=== PATIENT | female | born 1995 | race Caucasian/White ===

== ENCOUNTER 2022-08-09 01:12 | Outpatient (CLI) | payer BC, SELFPAY ==
[2022-08-09 14:40] LABS: Panorama Kit Sent via Fed Ex
[2022-08-09 15:14] LABS: Abs Immature Grans 0.01 10^3/uL (0.0-0.06); Absolute Basophil Count 0.03 10^3/uL (0.0-0.2); Absolute Eosinophil Count 0.03 10^3/uL (0.0-0.7); Absolute Lymphocyte Count 1.69 10^3/uL (1.2-3.4); Absolute Monocyte Count 0.27 10^3/uL (0.1-0.8); Absolute Neutrophil Count 6.32 10^3/uL (1.2-6.7); Basophils % 0.4; Eosinophils % 0.4; HCT 37.7 % (36.0-46.0); HGB 13.1 g/dL (11.2-15.7); Immature Grans % 0.1; Lymphocytes % 20.2; MCH 29.2 pg (27.0-33.0); MCHC 34.7 % (32.0-36.0); MCV 84 fL (80-95); MPV 9.4 fL (8.0-11.0); Monocytes % 3.2; Neutrophils % 75.7; Platelet Count 241 10^3/uL (130-400); RBC 4.49 10^6/uL (3.93-5.22); RDW 13.3 % (11.7-14.6); RDW-SD 41.1 fL; WBC 8.35 10^3/uL (4.4-10.8)
[2022-08-09 15:55] LABS: Glucose,1 Hr (Glucola) 136 mg/dL (80-140)
[2022-08-09 16:11] LABS: TSH (W/Ref FT4) 1.81 uIU/mL (0.36-3.74)
[2022-08-12 10:29] LABS: HIV-1/2 Ag & Ab Screen Negative (Negative)
[2022-08-12 10:42] LABS: Varicella IgG Antibody Positive (See Note)
[2022-08-12 10:44] LABS: Rubella IgG Ab (UVM) Positive (See Note)
[2022-08-12 10:45] LABS: Hepatitis C Ab w Rflx HCV PCR Negative (Negative)
[2022-08-12 11:34] LABS: Hepatitis B Surface Ag Negative (Negative)
[2022-08-13 13:02] LABS: Syphilis IgG w/Reflex Nonreactive (Nonreactive)
== END 2022-08-09 01:13 | disposition home or self-care (01) ==
LOC: LBO 01:13
PROVIDERS: Visit Provider Advanced Practice Midwife
DX: Z34.91 Encounter for supervision of normal pregnancy, unspecified, first trimester (principal); Z36.89 Encounter for other specified antenatal screening; Z3A.10 10 weeks gestation of pregnancy
CPT/HCPCS: 36415; 82950; 86787; 86803; 86850; 86900; 86901; 87340; 87389; 84443; 85025; 86762; 86780

== ENCOUNTER 2022-08-09 14:17 | Outpatient (REF) | payer BC, SELFPAY ==
--- NOTE | 2022-08-09 13:30 | PAPFT_PTH ---
PATIENT: Jennifer Dasilva LOC: [facility] U#:[id number] AGE/SX: 26/F ROOM: RE08/09/[address]: Mary Anne Guzman CNM : 1995 BED: DIS: 08/09/2022 SPEC #: [id number] RECD: 08/09/22 16:21 STATUS: [place] REMark #: [id number] RICKY: 08/09/22 13:[address]: Mary Anne Guzman DEPT: [facility] Cytology RECD BY: Karine Snyder Tissues: 1 - CX/ENDOCX FOR PAP SMEARS Procedures: PAP THIN PREP/UVM Screening Comments: [id number] (CHLAMYDIA/GC)
[2022-08-09 15:21] LABS: *AMPHETAMINES SCREEN URINE Negative (Negative); *BARBITURATES SCREEN URINE Negative (Negative); *BENZODIAZEPINES SCREEN URINE Negative (Negative); Cannabinoids THC Negative (Negative); Cocaine Screen,Urine Negative (Negative); METHADONE URINE SCREEN Negative (Negative); OPIATES URINE SCREEN Negative (Negative)
[2022-08-09 15:26] LABS: Tricyclic Antidepressants Negative (Negative)
[2022-08-11 16:55] LABS: Chlamydia Result Negative (Negative); GC Result Negative (Negative)
[2022-08-19 21:09] LABS: Buprenorphine Negative ng/mL (Cutoff: 5.0); Norbuprenorphine Negative ng/mL (Cutoff: 2.5)
== END 2022-08-09 14:18 | disposition home or self-care (01) ==
LOC: LBN 14:17
PROVIDERS: Visit Provider Advanced Practice Midwife
DX: Z34.91 Encounter for supervision of normal pregnancy, unspecified, first trimester (principal); Z11.3 Encounter for screening for infections with a predominantly sexual mode of transmission; Z3A.10 10 weeks gestation of pregnancy; Z12.4 Encounter for screening for malignant neoplasm of cervix
CPT/HCPCS: 80307; 80348; 87491; 87591; 88142; 87086

== ENCOUNTER 2022-08-16 02:59 | Outpatient (CLI) | payer BC, SELFPAY ==
[2022-08-16 12:04] LABS: Glucose 1 Hour 143 mg/dL
[2022-08-16 13:49] LABS: Glucose 3 Hour 102 mg/dL
== END 2022-08-16 03:00 | disposition home or self-care (01) ==
LOC: LBO 03:01
PROVIDERS: Visit Provider Advanced Practice Midwife
DX: Z34.90 Encounter for supervision of normal pregnancy, unspecified, unspecified trimester (principal)
CPT/HCPCS: 36415; 82951

== ENCOUNTER 2022-11-19 03:22 | Outpatient (CLI) | payer BC, SELFPAY ==
[2022-11-19 07:13] LABS: HCT 36.7 % (36.0-46.0); HGB 12.5 g/dL (11.2-15.7); MCH 30.5 pg (27.0-33.0); MCHC 34.1 % (32.0-36.0); MCV 90 fL (80-95); MPV 8.8 fL (8.0-11.0); Platelet Count 204 10^3/uL (130-400); RDW 13.8 % (11.7-14.6); RDW-SD 45.3 fL; WBC 10.36 10^3/uL (4.4-10.8)
[2022-11-19 07:48] LABS: ALT 21 U/L (14-59); AST 16 U/L (15-37); Albumin 2.8 g/dL (3.4-5.0); Alkaline Phosphatase 76 U/L (46-116); Anion Gap 7.3 mmol/L (3-11); BUN 8 mg/dL (7-18); Bilirubin, Total 0.3 mg/dL (0.2-1.0); CO2 26.7 mmol/L (21.0-32.0); CREATININE 0.6 mg/dL (0.55-1.02); Chloride 102 mmol/L (98-107); Estimated GFR 127.67 (mL/min/1.73m2); Glucose 88 mg/dL (74-106); Potassium 3.8 mmol/L (3.5-5.1); Sodium 136 mmol/L (136-145); Total Protein 6.7 g/dL (6.4-8.2)
[2022-11-19 08:43] LABS: Glucose 1 Hour 153 mg/dL
[2022-11-19 10:47] LABS: Glucose 3 Hour 52 mg/dL
== END 2022-11-19 03:23 | disposition home or self-care (01) ==
LOC: LBO 03:22
PROVIDERS: Visit Provider Advanced Practice Midwife
DX: Z34.92 Encounter for supervision of normal pregnancy, unspecified, second trimester (principal); Z3A.25 25 weeks gestation of pregnancy
CPT/HCPCS: 36415; 80053; 85027; 82951

== ENCOUNTER 2023-02-07 15:52 | Outpatient (REF) | payer BC, SELFPAY ==
[2023-02-07 17:02] LABS: *AMPHETAMINES SCREEN URINE Negative (Negative); *BARBITURATES SCREEN URINE Negative (Negative); *BENZODIAZEPINES SCREEN URINE Negative (Negative); Cannabinoids THC Negative (Negative); Cocaine Screen,Urine Negative (Negative); METHADONE URINE SCREEN Negative (Negative); OPIATES URINE SCREEN Negative (Negative); Tricyclic Antidepressants Negative (Negative)
[2023-02-13 08:32] LABS: Buprenorphine Negative ng/mL (Cutoff: 5.0); Norbuprenorphine Negative ng/mL (Cutoff: 2.5)
== END 2023-02-07 15:53 | disposition home or self-care (01) ==
LOC: LBN 15:52
PROVIDERS: PCP Advanced Practice Midwife; Visit Provider Advanced Practice Midwife
DX: Z34.90 Encounter for supervision of normal pregnancy, unspecified, unspecified trimester (principal)
CPT/HCPCS: 80307; 80348; 87081

== ENCOUNTER 2023-02-26 18:50 | Inpatient (IN) | payer BC, SELFPAY ==
[2023-02-26 17:00] VITALS: BP 128/78; PULSE 83; TEMP 36.8
[2023-02-26 17:12] VITALS: BP 128/78; PULSE 83
[2023-02-26 18:27] LABS: ROM Plus Positive
--- NOTE | 2023-02-26 18:30 | W.PM.OBHPL1 ---
Date of service: 02/26/23 Time of Service: 18:31 Assessment and Plan Assessment and plan (1) Full-term premature rupture of membranes (PROM) with unknown onset of labor: Status: Acute Assessment and plan: 1. Will admit, CBC and type and screen. 2. Observe for increase in contraction strength and frequency, consider augmentation if indicated. 3. GBS negative and afebrile 4. [employer] was present when patient arrived and has talked with patient about epidural if needed. 5. Expect NVD. Dr. Rodríguez is aware of patient's admission and plan of care. KH OB-HPI Labor/Delivery History of Present Illness Reason for Visit: NST Chief Complaint: Suspected Rupture of Membranes , Associated Signs and Symptoms of Suspected ROM: Nitrazine positive and large gushes of clear fluid vaginally.. SARAH Calculator Estimated Delivery Date Method Current WG Current Estimate 03/02/23 Ultrasound #1 39w 3d Other Estimates 02/23/23 LMP (Certain) 40w 3d Comments: Jennifer presented at 1640 with complaint of leaking clear amniotic fluid since 1240 today. She has been having some contractions. Denies vaginal bleeding. She is planning epidural in labor. Nitrazine paper used to confirmed ROM as well as large amounts of fluid noted under patient on pad. LANETTE History of Present Expected Delivery Route/Plan - CNM FOB/partner - Hazel Anton (first child) BG / GBS neg Planning on epidural, but maybe access to tub for early labor Specific Issues/Plan 1. BMI 30 - early glucola 136, 3hr GTT nml x4 1a. 3 hr GTT at 27-28 wks=nml: 92/153/123/52 2. Increased preeclampsia risk d/t nulliparity & BMI - Started ASA at 12 wks 3. cfDNA Low risk female, declines CF/SMA and AFP 4. mild scoliosis, anesthesia consult third trimester. Workload sent to [employer] 11/29. 01/09 - anesthesia consult 5. GERD = protonix recommended daily. Changed back to omeprazole. 6. Leg cramps - magnesium daily recommended- did not take Assessment: History Reviewed & Current Review of Systems All systems reviewed & are unremarkable except as noted in HPI and below (irregular contractions.) PFSH All Active Problems (Updated 02/26/23 @ 18:37 by Mary Anne Guzman CNM) Full-term premature rupture of membranes (PROM) with unknown onset of labor (Acute) Exertional asthma (Acute) Chronic heartburn (Acute) (Acute) BMI 30.0-30.9,adult (Acute) Medical History (Updated 02/26/23 @ 18:37 by Mary Anne Guzman CNM) Positive urine test Family History Mother Parathyroid abnormality Paternal Grandmother Hyperlipidemia Social History (Updated 08/09/22 @ 12:51 by Mary Anne Guzman CNM) Smoking/Tobacco Use Status: Never Smoking risk assessment performed?: Yes Alcohol Intake: current Alcohol Intake frequency: a few times a month Details: quit with Current gender identity: female History History 1 Para 0 Hx # Term Pregnancies 0 Multiple births 0 Hx # Pregnancies 0 Ectopic pregnancies 0 AB induced 0 Hx Number of Living Children 0 AB spontaneous 0 Meds Allergies and Home Medications Allergies Allergy/AdvReac Type Severity Reaction Status Date / Time No Known Drug Allergies Allergy Verified 02/21/23 14:27 Home Medications Medication Instructions Recorded Confirmed Type prenat.vits,hira,gys-jstm-zufkp 1 tab PO DAILY 07/04/22 02/21/23 History omega-3 fatty acids 1,250 mg 1,250 mg PO DAILY 07/18/22 02/21/23 History capsule aspirin 81 mg tablet,delayed 81 mg PO DAILY 09/13/22 02/21/23 History release (Adult Low Dose Aspirin) omeprazole 10 mg capsule,delayed 20 mg (2 x 10 mg) PO DAILY #30 caps 12/27/22 02/21/23 Rx release Exam Physical Exam Vital signs: Pulse BP 83 128/78 02/26/23 17:12 02/26/23 17:12 Vital Signs Reviewed: Yes Constitutional Constitutional: no acute distress and obese Detailed Labor and Delivery Exam Dilation: 1.5 Effacement (%): 70 station: -2 Position: LOP Cervix position: posterior Consistency: soft Lucas Score: Cervical Points Exam 0 1 2 3 Dilation Closed 1-2cm 3-4 cm 5-6cm Effacement 0-30% 40-50% 60-70% 80% Consistency Firm Medium Soft Station -3 -2 -1,0 +1,+2 Position Posterior Mid Anterior LUCAS Score(Cervical Ripeness Score): 6 Amniotic Membrane Status: Ruptured Rupture Method: Spontaneous Amniotic Fluid: Clear Monitor Mode: External Contraction Frequency(min): irregular Contraction Duration(sec): irregular Contraction Intensity: Mild Fetus A Heart Rate Baseline: 140 Monitor Accelerations: 15 X 15 Monitor Decelerations: None Variability: Moderate (6-25 BPM) Categories: Category I Est. Weight: 7 lb 12 oz Date of Membrane Rupture: 02/26/23 Time of Membrane Rupture: 12:40 HEENT Exam HEENT Exam: Normal Neck Exam Neck Exam: Normal Chest/Brest/Axilla Exam Chest Exam: Normal Breast Exam Breast Exam: Not Done Respiratory Exam Respiratory Exam: Normal Cardiovascular Exam Cardiovascular Exam: Normal Abdominal Exam Abdominal Exam: Normal Rectal Exam Rectal Exam: Not Done Exam Exam: Normal Extremities Exam Extremities Exam: Normal Back/Spine/Pelvis Exam Back Exam: Normal Pelvis Adequate: Yes Skin Exam Skin Exam: Normal Neurological Exam Neurological Exam: Normal Psychiatric Exam Psychiatric Exam: Normal Risk Assessment Risk for Shoulder Dystocia Historical/Initial OB: POSITIVE FOR: Pre- BMI>30; NEGATIVE FOR: Pelvic Abnormality, Previous Shoulder Dystocia or Previous Macrosomia 40 Weeks: NEGATIVE FOR: EFW> 4500 gms, Maternal Weight Gain >40lb or Post Dates Delivery Plan @ 40 wks: NVD. GAMA Risk for Pre-Eclampsia Yes, if one or more: NEGATIVE FOR: Hx Pre-E/Gest HTN, Chronic HTN, Multiple Gestation, Pre-gestational DM, Renal Disease, Systemic Lupus or APA Syndrome Yes, if 2 or more: POSITIVE FOR: Nulliparity and BMI>30; NEGATIVE FOR: Age>= 35 yrs, >10yr btwn pregnancies, ethinicty, Mother/Sister w/ Pre-E or Previous IUGR Risk for Post- Hemorrhage Initial: NEGATIVE FOR: Multiple Gestation, Previous PPH, Known Clotting Deficiency, Grand Multiparity or Anticoagulation 40 Weeks: NEGATIVE FOR: Anemia, hgb<10, Low platelets (thrombocytopenia), Gestation HTN or Pre-E, Polyhydraminios or EFW>4500gms At Risk?: No Counseled re: Active Management: Yes Date/Initials: 02/26/23 LANETTE Risks Reviewed Risks Reviewed Upon Admission: Yes
--- NOTE | 2023-02-26 19:02 | W.PM.OBNL1 ---
Date of service: 02/26/23 Time of Service: 19:03 Informed Consent Informed Consent: Augmentation of Labor and Risk,Benefits,Alternatives Discussed Contractions Monitor Mode: Palpation Contraction Frequency(min): irregular Fetus A Assessment Note: FHR tracing reassuring on admission. Currently off monitor to eat and ambulate. Plan will be to augment at approximately 2100 unless in active labor by that time. Will be back on monitor prior to that dose. LANETTE Assessment and Plan Assessment and plan (1) Full-term premature rupture of membranes (PROM) with unknown onset of labor: Status: Acute Assessment and plan: 1. Discussed augmentation of labor with misoprostol and or pitocin with patient versus expectant management. She prefer to start misoprostol this evening to make labor more effective. 2. Will start with 50 mg misoprostol at approximately 2100 unless actively marisel at that time. LANETTE Objective Pulse BP 83 128/78 02/26/23 17:12 02/26/23 17:12 Laboratory Results Membranes Rupture Positive 02/26/23 17:35 Subjective Interval history since last seen: Jennifer would like to have dinner and then start a method of augmentation. We discussed pitocin and misoptostol. She prefer misoprostol to start. I have reviewed risks and benefits as well as expected outcomes and potential side effects. Denies questions. LANETTE
[2023-02-26 19:11] VITALS: BP 112/63; PULSE 76; RESP 16; TEMP 37
[2023-02-26 19:21] LABS: HCT 33.2 % (36.0-46.0); HGB 11.1 g/dL (11.2-15.7); MCH 27.8 pg (27.0-33.0); MCHC 33.4 % (32.0-36.0); MCV 83 fL (80-95); MPV 9.9 fL (8.0-11.0); Platelet Count 218 10^3/uL (130-400); RBC 3.99 10^6/uL (3.93-5.22); RDW 13.2 % (11.7-14.6); RDW-SD 39.9 fL; WBC 13.53 10^3/uL (4.4-10.8)
--- NOTE | 2023-02-26 20:38 | ANES.PREOP_ITS ---
General Info Date of Service Date Performed: 02/26/23 Height: 5 ft 7 in Weight: 105.868 kg Body Mass Index (BMI): 36.5 Meds Allergies and Home Medications Allergies Allergy/AdvReac Type Severity Reaction Status Date / Time No Known Drug Allergies Allergy Verified 02/21/23 14:27 Home Medication Medication Instructions Recorded prenat.vits,hira,vey-[id number] 1 tab PO DAILY 07/04/22 omega-3 fatty acids 1,250 mg 1,250 mg PO DAILY 07/18/22 capsule aspirin 81 mg tablet,delayed 81 mg PO DAILY 09/13/22 release (Adult Low Dose Aspirin) omeprazole 10 mg capsule,delayed 20 mg (2 x 10 mg) PO DAILY #30 caps 12/27/22 release Current Visit Medications: Current Medications Generic Name Dose Route Start Last Admin Trade Name Freq PRN Reason Stop Dose Admin Ringer's Solution 1,000 mls @ 200 mls/hr 02/26/23 19:00 IV INFUSION [facility] IV Miscellaneous Supplies 1 each 02/26/23 19:00 Iv Access IV DIRECTED JEVON Misoprostol 50 mcg 02/26/23 19:00 Misoprostol 25 Mcg Tab PO Q4H JEVON Sodium Chloride 0 ml 02/26/23 18:50 Normal Saline Flush 10 Ml Syr IVP PRN PRN Sodium Chloride 0 ml 02/26/23 20:00 Normal Saline Flush 10 Ml Syr IVP BID JEVON Sodium Chloride 0 ml 02/26/23 18:50 Normal Saline 10 Ml Vial IJ DIRECTED PRN Terbutaline Sulfate 0.25 mg 02/26/23 18:50 Terbutaline 1 Mg/Ml Vial SC PRN PRN Zolpidem Tartrate 10 mg 02/26/23 21:00 Zolpidem 5 Mg Tab PO 02/27/23 06:00 2100 JEVON PFSH Active Problems Active Problems: Problem Status Onset Code Full-term premature rupture of membranes (PROM) with unknown onset of labor O42.90 Exertional asthma J45.990 Chronic heartburn R12 Z34.90 BMI 30.0-30.9,adult Z68.30 Medical History Medical History (Updated 02/26/23 @ 18:37 by Mary Anne Guzman CNM) Positive urine test Tobacco Smoking/Tobacco Use Status: Never Alcohol Alcohol Intake: current Alcohol intake frequency: a few times a month Details: quit with Prental History History 2 1 Para 0 Hx # Term Pregnancies 0 Multiple births 0 Hx # Pregnancies 0 Ectopic pregnancies 0 AB induced 0 Hx Number of Living Children 0 AB spontaneous 0 Vital Signs and Lab Results Vital Signs Most Recent Vital Signs in EMR: Most Recent Vital Signs Temp Pulse Resp BP 37.0 C 76 16 112/63 02/26/23 19:11 02/26/23 19:11 02/26/23 19:11 02/26/23 19:11 Lab Results 02/26/23 19:06 Blood Type / Crossmatch: 2 Patient ABO/Rh A Positive 02/26/23 Antibody Screen NEGATIVE 02/26/23 Complete Blood Count: 2 White Blood Count 13.53 10^3/uL (4.4-10.8) H 02/26/23 19:06 Red Blood Count 3.99 10^6/uL (3.93-5.22) 02/26/23 19:06 Hemoglobin 11.1 g/dL (11.2-15.7) L 02/26/23 19:06 Hematocrit 33.2 % (36.0-46.0) L 02/26/23 19:06 Platelet Count 218 10^3/uL (130-400) 02/26/23 19:06 Complete Metabolic Panel: 2 No Data to Display Liver Function Panel: 2 No Data to Display Coagulation Panel: 2 No Data to Display Cardiac Panel: 2 No Data to Display Arterial Blood Gas: 2 No Data to Display Venous Blood Gas: 2 No Data to Display Pancreas Panel: 2 No Data to Display Thyroid Panel: 2 No Data to Display Infectious Disease: 2 No Data to Display Blood Cultures: 2 No Data to Display Toxicology Panel: 2 Urine Amphetamines Screen Negative (Negative) 02/07/23 15:45 Urine Benzodiazepines Screen Negative (Negative) 02/07/23 15:4 5 Urine Barbiturates Screen Negative (Negative) 02/07/23 15:45 Urine Cocaine Screen Negative (Negative) 02/07/23 15:45 Urine Methadone Screen Negative (Negative) 02/07/23 15:45 Urine Opiates Screen Negative (Negative) 02/07/23 15:45 Ur Tricyclic Antidepressants Screen Negative (Negative) 15:45 Ur Tetrahydrocannabinol (THC) Scrn Negative (Negative) 3 15:45 Panel: 2 No Data to Display Anesthesia Assessment and Plan Anesthesia History Personal History: No History of Anesthesia Complications Family History: No Family History of Anesthesia Complications Exercise Tolerance Exercise Tolerance: Metabolic Equivalents>4 Pertinent Negatives Pertinent Negatives: No Major Cardiovascular Symptoms or Complaints Cardiac & Pulmonary Exam Cardiac Exam: Normal S1/S2 Heart Sounds Pulmonary Exam: Clear Bilateral Breath Sounds Implantable Cardiac Device Does patient have a Pacemaker or an ICD?: No Airway Exam Known Difficult Airway: No Mallampati Class: 2 Mouth Opening: Normal (> 3cm) Thyromental Distance: Greater than 3 cm Neck Range of Motion: Full ROM Neck Circumference: Normal Teeth Condition: Normal Dentition ASA Classification ASA Score: ASA 2 Emergency Case?: No NPO Status NPO Status: Full Stomach Status Status: Confirmed Anesthesia Plan Resuscitation Status: Full Code Anesthesia Technique: Labor Epidural Airway Planned: Natural Airway Monitors Used: Standard Monitors
[2023-02-26 20:42] VITALS: BMI 36.5
[2023-02-26 21:20] VITALS: TEMP 36.7
--- NOTE | 2023-02-26 21:20 | W.PM.OBNL1 ---
Date of service: 02/26/23 Time of Service: 21:00 Informed Consent Informed Consent: Augmentation of Labor and Risk,Benefits,Alternatives Discussed Pelvic Exam Comments: VE deferred due to ROM X >8 hours Contractions Monitor Mode: Palpation Contraction Frequency(min): 5 Contraction Duration(sec): 60 Intensity: Mild/Moderate Fetus A Monitor: External (US) Heart Rate Baseline: 135 Categories: Category I Assessment and Plan Assessment and plan (1) Full-term premature rupture of membranes (PROM) with unknown onset of labor: Status: Acute Assessment and plan: 1. Jennifer's contractions are becoming more regular and intensifying. Will continue with expectant management and defer misoprostol at this time. Will reassess in 2-4 hours or prn. KH Objective Abnormal lab results 02/26/23 Range/Units 19:06 WBC 13.53 H (4.4-10.8) 10^3/uL Hgb 11.1 L (11.2-15.7) g/dL Hct 33.2 L (36.0-46.0) % Temp Pulse Resp BP 98.6 F 76 16 112/63 02/26/23 19:11 02/26/23 19:11 02/26/23 19:11 02/26/23 19:11 Laboratory Results WBC 13.53 10^3/uL (4.4-10.8) H 02/26/23 19:06 RBC 3.99 10^6/uL (3.93-5.22) 02/26/23 19:06 Hgb 11.1 g/dL (11.2-15.7) L 02/26/23 19:06 Hct 33.2 % (36.0-46.0) L 02/26/23 19:06 MCV 83 fL (80-95) 02/26/23 19:06 MCH 27.8 pg (27.0-33.0) 02/26/23 19:06 MCHC 33.4 % (32.0-36.0) 02/26/23 19:06 RDW 13.2 % (11.7-14.6) 02/26/23 19:06 Plt Count 218 10^3/uL (130-400) 02/26/23 19:06 MPV 9.9 fL (8.0-11.0) 02/26/23 19:06 Membranes Rupture Positive 02/26/23 17:35 Patient ABO/Rh A Positive 02/26/23 19:06 Antibody Screen NEGATIVE 02/26/23 19:06 Subjective Interval history since last seen: Jennifer is more uncomfortable and breathing through contractions. Will hold misoprostol and continue with expectant management.KH Results Hemoglobin/Hematocrit: Hgb 11.1 g/dL (11.2-15.7) L 02/26/23 19:06 Hct 33.2 % (36.0-46.0) L 02/26/23 19:06 Abnormal Lab Findings: Abnormal Labs 02/26/23 19:06 WBC 13.53 H Hgb 11.1 L Hct 33.2 L
[2023-02-26 22:21] VITALS: TEMP 36.8
[2023-02-26 23:19] VITALS: BP 120/73; PULSE 77; RESP 16; TEMP 37
--- NOTE | 2023-02-26 23:38 | W.PM.OBNL1 ---
Date of service: 02/26/23 Time of Service: 23:38 Informed Consent Informed Consent: Augmentation of Labor and Risk,Benefits,Alternatives Discussed Pelvic Exam Comments: VE deferred Contractions Monitor Mode: External Contraction Frequency(min): 4-6 Contraction Duration(sec): 40-60 Intensity: Mild/Moderate Fetus A Monitor: External (US) Heart Rate Baseline: 135 Variability: Moderate (6-25 BPM) Categories: Category I Assessment and Plan Assessment and plan (1) Full-term premature rupture of membranes (PROM) with unknown onset of labor: Status: Acute Assessment and plan: 1. Will start misoprostol 50 mcg PO and reassess in 1-2 hours 2. Nitrous for pain management at this time if needed 3. Reviewed importance of rest but also active participation in labor process 4. Denies questions and prefers to move labor forward at this time. KH Objective Abnormal lab results 02/26/23 Range/Units 19:06 WBC 13.53 H (4.4-10.8) 10^3/uL Hgb 11.1 L (11.2-15.7) g/dL Hct 33.2 L (36.0-46.0) % Temp Pulse Resp BP 98.3 F 77 16 120/73 02/26/23 22:21 02/26/23 23:19 02/26/23 19:11 02/26/23 23:19 Laboratory Results WBC 13.53 10^3/uL (4.4-10.8) H 02/26/23 19:06 RBC 3.99 10^6/uL (3.93-5.22) 02/26/23 19:06 Hgb 11.1 g/dL (11.2-15.7) L 02/26/23 19:06 Hct 33.2 % (36.0-46.0) L 02/26/23 19:06 MCV 83 fL (80-95) 02/26/23 19:06 MCH 27.8 pg (27.0-33.0) 02/26/23 19:06 MCHC 33.4 % (32.0-36.0) 02/26/23 19:06 RDW 13.2 % (11.7-14.6) 02/26/23 19:06 Plt Count 218 10^3/uL (130-400) 02/26/23 19:06 MPV 9.9 fL (8.0-11.0) 02/26/23 19:06 Membranes Rupture Positive 02/26/23 17:35 Patient ABO/Rh A Positive 02/26/23 19:06 Antibody Screen NEGATIVE 02/26/23 19:06 Subjective Interval history since last seen: I talked with Jennifer and her partner about being 11 hours with ROM and not in active labor. Her contractions are more uncomfortable for her but are still up to 6-8 minutes apart at times. We discussed continued expectant management and that prolonged rupture of membranes, even without GBS is a risk of infection and labor abnormalities but that some women will go into active labor at 24 hours after ROM. We discussed that she is afebrile, baby is doing well and there is no need to intervene immediately but also keeping in mind that she is remote from delivery. I reviewed options of misoprostol, pitocin or expectant management and pain management options of nitrous or epidural as needed. Jennifer would like to try misoprostol and nitrous at this time. KH Interventions Pain Management Interventions: Comfort Measures and Nitrous Oxide , reviewed proper use and potential side effects as well as expected effects. denies questions ./ Other (misoprostol 50 mcg PO) Results Hemoglobin/Hematocrit: Hgb 11.1 g/dL (11.2-15.7) L 02/26/23 19:06 Hct 33.2 % (36.0-46.0) L 02/26/23 19:06 Abnormal Lab Findings: Abnormal Labs 02/26/23 19:06 WBC 13.53 H Hgb 11.1 L Hct 33.2 L
[2023-02-26] MEDS: miSOPROStol 25 MCG TAB 50 MCG PO (23:49)
[2023-02-27] VITALS (121 sets, daily range): BP systolic 90–165; BP diastolic 50–98; PULSE 74–166; RESP 16–17; TEMP 36.2–37.6; O2SAT 84–100
--- NOTE | 2023-02-27 01:48 | W.PM.OBNL1 ---
Date of service: 02/27/23 Time of Service: 01:49 Informed Consent Informed Consent: Augmentation of Labor and Risk,Benefits,Alternatives Discussed Pelvic Exam Dilation: 6 Effacement (%): 90 station: -1 Cervix Position: mid Consistency: soft Contractions Monitor Mode: External Contraction Frequency(min): 2-3 Contraction Duration(sec): 60 Intensity: Moderate/Strong Fetus A Monitor: External (US) Heart Rate Baseline: 40 Variability: Moderate (6-25 BPM) Categories: Category I Accelerations: 15 X 15 Decelerations: None Assessment and Plan Assessment and plan (1) Full-term premature rupture of membranes (PROM) with unknown onset of labor: Status: Acute Assessment and plan: 1. In active labor at this time 2. IV started and Nursing dehydrogenation supervisor notified of paitent request for epidural 3. Will reassess after epidural or prn 4. Expect NVD. KH Objective Abnormal lab results 02/26/23 Range/Units 19:06 WBC 13.53 H (4.4-10.8) 10^3/uL Hgb 11.1 L (11.2-15.7) g/dL Hct 33.2 L (36.0-46.0) % Temp Pulse Resp BP 98.5 F 77 16 120/73 02/27/23 00:47 02/26/23 23:19 02/26/23 23:19 02/26/23 23:19 Laboratory Results WBC 13.53 10^3/uL (4.4-10.8) H 02/26/23 19:06 RBC 3.99 10^6/uL (3.93-5.22) 02/26/23 19:06 Hgb 11.1 g/dL (11.2-15.7) L 02/26/23 19:06 Hct 33.2 % (36.0-46.0) L 02/26/23 19:06 MCV 83 fL (80-95) 02/26/23 19:06 MCH 27.8 pg (27.0-33.0) 02/26/23 19:06 MCHC 33.4 % (32.0-36.0) 02/26/23 19:06 RDW 13.2 % (11.7-14.6) 02/26/23 19:06 Plt Count 218 10^3/uL (130-400) 02/26/23 19:06 MPV 9.9 fL (8.0-11.0) 02/26/23 19:06 Membranes Rupture Positive 02/26/23 17:35 Patient ABO/Rh A Positive 02/26/23 19:06 Antibody Screen NEGATIVE 02/26/23 19:06 Subjective Interval history since last seen: Good response to misoprostol with regular contractions that have become intense. She is now asking for epidural. Nursing dehydrogenation supervisor notified to page [employer]. /-1 bulging forewaters + show Results Hemoglobin/Hematocrit: Hgb 11.1 g/dL (11.2-15.7) L 02/26/23 19:06 Hct 33.2 % (36.0-46.0) L 02/26/23 19:06 Abnormal Lab Findings: Abnormal Labs 02/26/23 19:06 WBC 13.53 H Hgb 11.1 L Hct 33.2 L
[2023-02-27] MEDS: Normal Saline Flush 10 ML SYR IVP ×2 (01:56→02:05)
[2023-02-27] MEDS: Lactated Ringers 1,000 ML 999 ML IV (01:56)
[2023-02-27] MEDS: fentaNYL 100 MCG/2 ML VIAL 25 MCG IVP ×2 (02:02→02:16)
--- NOTE | 2023-02-27 02:29 | NUR.NOTE ---
Addendum entered by Mirian Bui RN 02/27/23 03:05: 0233 lido 0240 catheter placed 0242 Test dose 0247 pt repositioned, pump started with bolus 0252 5ml bolus started Original Note: Nursing Note: 0200. Pt requests epidural KARTIK Guzman notified 0210 Iv Placed, LR started 0225 LESLI Tanner at bedside 0228 Consint signed pt positioned 022 time out
--- NOTE | 2023-02-27 03:10 | W.ANESNEU ---
Epidural/Spinal Catheter Date Performed: 02/27/23 Procedure Start: 02:32 Procedure Stop: 03:10 Requesting Provider: Mary Anne Guzman Procedure Location: Obstetrics Reason Performed: Labor Epidural Standard Monitors Applied: Blood Pressure, SpO2 and See EMR for corresponding vital signs Patient Position: Sitting Sedation Given (Indicate Dose Given): No Sedation given Patient Mental Status: Awake Sterility: Hand Hygiene, Surgical Cap, Surgical Mask, Sterile Gloves, Sterile Drape/Sheet and Chlorhexidine Procedure Location: L3-L4 Interspace Epidural Needle: Tuohy 18 Gauge Needle Length: 3.5 Inch Needle Approach: Midline Epidural Procedure: Skin Prepped, Sterile Drape Placed, 1% Lidocaine to skin and subcutaneous tissue with 25G needle, Tuohy Needle placed, JESSICA to Saline Used, Epidural Catheter Placed, Negative Heme, Negative CSF Flow and Tuohy Needle Removed Catheter Placed?: Catheter Placed Test Dose (Indicate Dose Given): 3ml 1.5% Lidocaine with 1:200K Epinephrine Given and Negative Test Dose Loss of Resistance Depth (cm): 6 Catheter depth at skin (cm): 12 Dressing: [place] Dressing Placed, Mastisol Used and Dressing reinforced with Tape Epidural Provider Bolus (Indicate Dose Given): Total bolus dose given in 3-5 ml divided doses and Total Ropivacaine 0.1% with Fentanyl 2mcg/ml Given from pump. (ml) Dose:: 15ml Additives (Indicate Dose Given ): None Infusion Medication: Medication Infusion Began Medication Infusion: Ropivacaine 0.1% with Fentanyl 2mcg/ml Maintenance Infusion Rate (ml/hour): 10 PCEA Bolus Dose (ml): 5 Post Procedure Pain score (0-10): 3 Block Level: N/A Paresthesia: None Ultrasound: Not Used Number of Attempts (See previous attempts in note section): 1 Procedure Tolerated: No Complications and Patient tolerated well Procedure Outcome: Successful Procedure Comment:: Successful placement with negative test dose. Pt. able to move legs and motor is strong. 15ml from pump with relief, now feeling mostly pressure. Will hold additional doses due to decels and patient educated on PCEA use. Pt. left in right side position with RN and CNM present. All questions answered. Performed By: Ciro Cool
[2023-02-27] MEDS: Lactated Ringers 1,000 ML 200 ML IV (03:15)
--- NOTE | 2023-02-27 04:25 | NUR.NOTE ---
Nursing Note: Straight cath placed by KARTIK Guzman for 150ml
--- NOTE | 2023-02-27 04:51 | W.PM.OBNL1 ---
Date of service: 02/27/23 Time of Service: 04:49 Informed Consent Informed Consent: Augmentation of Labor and Risk,Benefits,Alternatives Discussed Assessment and Plan Assessment and plan (1) Full-term premature rupture of membranes (PROM) with unknown onset of labor: Status: Acute Assessment and plan: 1. Jennifer progressed to 10 cm and urge to push following successfull epidural for pain management 2. FHR is CAT II with FHR tachycardia and late decels with pushing over past [address] Rodríguez notified of tracing and patient's pushing. 3. Bladder emptied for 150 cc concentrated urine 4. Will continue present management per consult and expect NVD. If FHR pattern worsens will notify physician again and she will attend. KH Objective Abnormal lab results 02/26/23 Range/Units 19:06 WBC 13.53 H (4.4-10.8) 10^3/uL Hgb 11.1 L (11.2-15.7) g/dL Hct 33.2 L (36.0-46.0) % Temp Pulse Resp BP Pulse Ox 99.4 F 88 16 133/58 L 100 02/27/23 04:46 02/27/23 04:50 02/26/23 23:19 02/27/23 04:50 02/27/23 04:48 Laboratory Results WBC 13.53 10^3/uL (4.4-10.8) H 02/26/23 19:06 RBC 3.99 10^6/uL (3.93-5.22) 02/26/23 19:06 Hgb 11.1 g/dL (11.2-15.7) L 02/26/23 19:06 Hct 33.2 % (36.0-46.0) L 02/26/23 19:06 MCV 83 fL (80-95) 02/26/23 19:06 MCH 27.8 pg (27.0-33.0) 02/26/23 19:06 MCHC 33.4 % (32.0-36.0) 02/26/23 19:06 RDW 13.2 % (11.7-14.6) 02/26/23 19:06 Plt Count 218 10^3/uL (130-400) 02/26/23 19:06 MPV 9.9 fL (8.0-11.0) 02/26/23 19:06 Membranes Rupture Positive 02/26/23 17:35 Patient ABO/Rh A Positive 02/26/23 19:06 Antibody Screen NEGATIVE 02/26/23 19:06 Subjective Interval history since last seen: call to Dr. Rodríguez due to CAT II tracing with decelerations in second stage. KH Results Hemoglobin/Hematocrit: Hgb 11.1 g/dL (11.2-15.7) L 02/26/23 19:06 Hct 33.2 % (36.0-46.0) L 02/26/23 19:06 Abnormal Lab Findings: Abnormal Labs 02/26/23 19:06 WBC 13.53 H Hgb 11.1 L Hct 33.2 L
[2023-02-27] MEDS: Oxytocin/Normal Saline 30 UNITS/500 ML BAG 167 UNITS IV (06:39)
--- NOTE | 2023-02-27 07:09 | W.OBDELIVERY ---
Date of service: 02/27/23 Time of Service: 07:09 OB Labor/ Delivery Information Baby A Delivery Delivery Method: Spontaneaous Presentation: Vertex Vertex Position: Left Occipital Anterior Cord Description-Baby A: 3 Vessels and Clamped/Cut Amniotic Fluid: Clear Estimated Blood Loss: 250 Delivery Outcome: Liveborn Infant Complications: none noted at delivery Infant Transferred: Remains with Mother Note: Jennifer presented for PROM at term on 02/26/23 in the evening. She had ROM at 1240 on 02/26 with increasing contractions noted. Reports fluid was clear and was noted to be clear on admission. She was having contractions 3-5 minutes apart and working well with them. FHR tracing was CAT I and reassuring. VS were stable. We discussed augmentation vs expectant management. Jennifer desired expectant management for a period of time and then agreed to a dose of Misoprostol 50 mcg PO at approximately 2345. Labor progressed to 6 cm and she requested epidural. FHR tracing remained CAT I with baseline of 140's. Contractions were every 2-3 minutes. Jennifer was able to rest for approximately 1 hour after her epidural was effective. At 0433 on 02/27/23 she was 10 cm with urge to push. Second stage huddle was held hourly, low risk for shoulder dystocia and PPH. FHR tracing was CAT II with FHR 160-170 and combination of early and occasional late deceleration. She pushed well. Fuel Cell Systems Engineer notified Dr. Rodríguez of tracing and that patient was pushing effectively at 0449. At 0555 underwriter solicitation director then called for pediatric provider to be notified of FHR tracing and Dr. Rodríguez was requested to come to assess patient due to persistent CAT II tracing, maternal fatigue. Dr. Rodríguez presented to hospital but patient was actively delivering and remained available in the hospital for CNM if needed. Baby Dorinda Vargas delivered MARINA over 1st degree left labial and vaginal introitus lacerations at 0630. Baby was vigorous at 1 minute of age with scores of 8 and 9. 3 vessel cord noted. Baby was placed skin to skin and after 2 minutes cord was double clamped and then cut by FOB. Positive family bonding noted. Pitocin was started per protocol. Placenta delivered at 0647, spontaneously, intact. fundus firmed to U with massage. Bi-manual exam demonstrated firm lower uterine segment. Lacerations were infiltrated with 1% lidocaine and repaired with 3.0 chromic with interrupted stitches to allow for approximation. sponge, needle and instrument count were correct. Expect normal PP course. Jennifer plans to breast feed her baby. Providers Nurse Stack Attendant: Mary Anne Guzman Nurse: Mirian Bui Nurse: Greta Cortez Labor/Delivery Information Number of Babies in Womb: 1 Steroids Given: None Reason Steroids Not Administered: N/A Group Beta Strep: Negative Antibiotics Administered: No Rubella Status: Immune Blood Type: A+ Varicella Immunity: Immune Maternal Complications: None Shoulder Dystocia: No Stages of Labor Onset of Labor Date: 02/27/23 Onset of Labor Time: 00:30 Complete Dilatation Date: 02/27/23 Complete Dilatation Time: 04:33 Labor - Stage 1 Duration: 4 hours and 3 minutes ROM Baby A: 02/26/23 ROM Baby A: 12:40 ROM Total Time- Baby A: [id number] Infant Delivery Date-Baby A: 02/27/23 Infant Delivery Time-Baby A: 06:30 Labor Stage 2 Duration: 1 hours and 57 minutes Placenta Delivery Date-Baby A: 02/27/23 Placenta Delivery Time-Baby A: 06:47 Labor-Stage 3 Duration: 17 minutes Total Length of Labor-Baby A: 6 hours and 0 minutes Placenta Cultured: No Placenta Status: Delivered Baby A Infant Gender: Female Gestational Status: Term (39-41.6 wks) Gestational Age in Weeks/Days: 39 Weeks and 4 Days Score-1 Minute Interval(Baby A) Heart Rate-1 minute: 100 BPM or Greater Respiratory Effort- 1 minute: Spontaneous/Strong Cry Muscle Tone-1 minute: Active Movement Reflex Response-1 minute: Prompt Response Color-1 minute: Pallor or Cyanosis Total Score-1 minute: 8 Score-5 Minute Interval(Baby A) Heart Rate- 5 minute: 100 BPM or Greater Respiratory Effort-5 minute: Spontaneous/Strong Cry Muscle Tone-5 minute: Active Movement Reflex Response-5 minute: Prompt Response Color-5 minute: Bluish Hands or Feet Total Score- 5 minute: 9
[2023-02-27] MEDS: Ibuprofen 600 MG TAB PO ×3 (08:30→23:18)
[2023-02-27] MEDS: Hamamelis Leaf/Glycerin 100 EACH BOX PR (08:40)
[2023-02-27] MEDS: Dibucaine 1% 28 GM TUBE TP (09:29)
--- NOTE | 2023-02-27 11:16 | W.ANESPOSTOP ---
Postoperative Evaluation Date, Time and Location Date Performed: 02/27/23 Time Performed: 11:16 Patient Location: Obstetrics Vital Signs Most Recent Imported Vital Signs: Most Recent Vital Signs Temp Pulse Resp BP Pulse Ox 37.3 C 97 H 17 117/59 L 99 02/27/23 08:32 02/27/23 10:32 02/27/23 08:32 02/27/23 10:32 02/27/23 08:32 Assessment Mental Status: Awake (Alert & Oriented to Patient Baseline) Airway and Respiratory Function: Patent airway with normal (patient baseline) respiratory exam Cardiovascular Function: Hemodynamically Stable Hydration Status: Adequately Hydrated Nausea & Vomiting: No Nausea or Vomiting Pain: Pain is tolerable per patient Peripheral Nerve Block: Patient did not receive a nerve block
[2023-02-28 08:00] VITALS: BP 115/78; PULSE 76; RESP 12; TEMP 36.6
--- NOTE | 2023-02-28 08:17 | W.PM.OBDISCH ---
Date of service: 02/28/23 Time of Service: 08:17 DS: Diagnosis Discharge Diagnosis (1) care following vaginal delivery: Status: Acute Asessment and Plan: 1. Normal PP course to date 2. Will return to office at 2 and 6 week PP 3. To call with any concerns, specifically fever, pain that is increased, sadness that prevents caring for self or baby 4. Planning progesterone only pill for contraception (2) Lactating mother: Status: Acute Asessment and Plan: 1. Breast feeding well established 2. To call with concerns and be seen at 2 weeks PP, also to keep pediatric appointments as scheduled Discharge Plan Disposition Patient Disposition: Home Condition: Good Discharge Details Reason For Visit: PROM at term, not in active labor Admit Date/Time: 02/26/23 18:50 Admit Provider: Mary Anne Guzman Attending Provider: Mary Anne Guzman Primary Care Provider: Mary Anne Meek Hospital Course Hospital Course: PROM with augmentation of labor with dose of misoprostol 50 mcg once. Utilized Nitrous Oxide, a dose of Fentanyl 25 mcg IV and then epidural for pain management. FHR CAT II at delivery with baby vigorous with 8/9 apgars. NVD. Normal PP course. KH Home Meds and New Rx's Prescriptions: New ibuprofen 600 mg Tablet 600 mg PO Q6H PRN PRNQty: 90 0RF Continued prenat.vits,hira,[id number] Tablet 1 tab PO DAILY omega-3 fatty acids 1,250 mg capsule 1,250 mg PO DAILY omeprazole 10 mg capsule,delayed release(DR/EC) 20 mg PO DAILY Qty: 30 5RF Discontinued aspirin [Adult Low Dose Aspirin] 81 mg tablet,delayed release (DR/EC) 81 mg PO DAILY Discharge Instructions Instructions: Depression (GEN), Control Pills (GEN) Stand Alone Forms: BC Instructions, BC Post Vaginal Deliver Activity:: Activity as Tolerated Equipment/Supplies:: No Equipment Needed Diet:: As Tolerated Discharge Orders Discharge Orders: Discharge Order (Routine); Ordered 02/28/23 Ordered By: Mary Anne Guzman OB:DS Summary Summary Vaginal Delivery Method: Spontaneaous Episiotomy Description: None Laceration Description: Perineal Laceration Extension: First Degree Contraception Discussed Contraception Discussed: Yes Contraceptive Plan: Control Pill/Patch, Gender-Baby A: Female weight: 8 lb 8.157 oz Status at Discharge Functional status at discharge: independent ambulation Overall status at discharge: patient is back to baseline Mental Status: mental status grossly normal Speech and Movement: speech and movement normal Mood: congruent mood Affect: normal affect Time Spent with Patient providing and/or coordinating discharge services: Less than 30 minutes Exam Physical Exam Vital signs: Temp Pulse Resp BP Pulse Ox 97.2 F L 85 17 125/76 99 02/27/23 21:53 02/27/23 21:53 02/27/23 21:53 02/27/23 21:53 02/27/23 21:53 Vital Signs Reviewed: Yes Constitutional Constitutional: no acute distress, average body habitus and cooperative HEENT Exam HEENT Exam: Normal Neck Exam Neck Exam: Normal (normal visual inspection) Respiratory Exam Respiratory Exam: Normal Cardiovascular Exam Cardiovascular Exam: Normal Abdominal Exam Abdomen: Other (normal exam) Fundal Exam Fundus: Below Umbilicus and Firm Comment: small lochia noted. KH Rectal Exam Rectal Exam: Not Done Exam Perineum: Intact and Repair Intact Extremities Exam Extremity Exam: Normal (denies calf tenderness) and Full ROM Back/Spine/Pelvis Exam Back Exam: Normal Skin Exam Skin Exam: Normal Neurological Exam Neurological Exam: Normal Psychiatric Exam Psychiatric Exam: Normal PFSH All Active Problems Lactating mother (Acute) care following vaginal delivery (Acute) Full-term premature rupture of membranes (PROM) with unknown onset of labor (Acute) Exertional asthma (Acute) Chronic heartburn (Acute) (Acute) BMI 30.0-30.9,adult (Acute) Medical History Positive urine test Family History Mother Parathyroid abnormality Paternal Grandmother Hyperlipidemia Social History Smoking/Tobacco Use Status: Never Smoking risk assessment performed?: Yes Alcohol Intake: current Alcohol Intake frequency: a few times a month Details: quit with Housing: house Current gender identity: female History History 1 Para 0 Hx # Term Pregnancies 0 Multiple births 0 Hx # Pregnancies 0 Ectopic pregnancies 0 AB induced 0 Hx Number of Living Children 0 AB spontaneous 0 DS: Data Vitals/I&O Vitals and I&O: Vital Signs Temperature 97.2 F L 02/27/23 21:53 Temperature 98.2 F 02/26/23 17:00 Temperature Source Tympanic 02/27/23 21:53 Pulse 85 02/27/23 21:53 Pulse 83 02/26/23 17:00 Pulse Rhythm Regular 02/27/23 21:53 Respiratory Rate 17 02/27/23 21:53 Respiratory Depth Normal 02/27/23 21:53 Blood Pressure 125/76 02/27/23 21:53 Blood Pressure 128/78 02/26/23 17:00 Blood Pressure Mean 92 02/27/23 21:53 Pulse Oximetry 99 02/27/23 21:53 Pain Level 0 02/27/23 21:53 Comment pt drinking ice water, took axillary 02/27/23 07:22 Intake & Output 02/27/23 02/27/23 02/28/23 11:59 23:59 11:59 Intake Total 2000.000 / 2500.000 500 / 2500.000 Output Total 900 / 2500 1600 / 2500 Balance 1100.000 / 0 -1100 / 0 Intake: IV 2000.000 / 2500.000 500 / 2500.000 Output: Urine 900 / 2500 1600 / 2500 Other: Urine Color Dark Dark Urine Appearance Clear
[2023-02-28] MEDS: Hamamelis Leaf/Glycerin 100 EACH BOX PR (12:38)
== END 2023-02-28 16:13 | disposition home or self-care (01) | DRG 807 ==
LOC: BCD 22:46 → OBS 22:46
PROVIDERS: Admitting Provider Advanced Practice Midwife; PCP Advanced Practice Midwife; Visit Provider Advanced Practice Midwife
DX: O42.013 Preterm premature rupture of membranes, onset of labor within 24 hours of rupture, third trimester (principal); Z37.0 Single live birth; Z3A.39 39 weeks gestation of pregnancy; O76 Abnormality in fetal heart rate and rhythm complicating labor and delivery; K21.9 Gastro-esophageal reflux disease without esophagitis; O42.02 Full-term premature rupture of membranes, onset of labor within 24 hours of rupture; O99.62 Diseases of the digestive system complicating childbirth; O75.89 Other specified complications of labor and delivery; J45.998 Other asthma; O99.52 Diseases of the respiratory system complicating childbirth; O70.0 First degree perineal laceration during delivery; R25.2 Cramp and spasm; M41.9 Scoliosis, unspecified
CPT/HCPCS: 84112; 85027; 86850; 86900; 86901; J3010; J3490

== ENCOUNTER 2024-11-05 05:14 | Outpatient (CLI) | payer BC, SELFPAY ==
[2024-11-05 14:56] LABS: Abs Immature Grans 0.02 10^3/uL (0.0-0.06); HCT 37.3 % (36.0-46.0); HGB 12.8 g/dL (11.2-15.7); Immature Grans % 0.3 %; MCH 27.4 pg (27.0-33.0); MCHC 34.3 % (32.0-36.0); MCV 80 fL (80-95); MPV 9.0 fL (8.0-11.0); Platelet Count 210 10^3/uL (130-400); RBC 4.67 10^6/uL (3.93-5.22); RDW 15.1 % (11.7-14.6); RDW-SD 43.8 fL; WBC 7.34 10^3/uL (4.4-10.8)
[2024-11-05 15:11] LABS: Hemoglobin A1C 5.4 % (<5.7)
[2024-11-06 02:20] LABS: HIV-1/2 Ag & Ab Screen Negative (Negative)
[2024-11-06 02:32] LABS: Hepatitis C Ab w Rflx HCV PCR Negative (Negative)
[2024-11-08 08:51] LABS: Rubella IgG Ab (UVM) Positive (See Note)
[2024-11-09 19:07] LABS: Syphilis IgG w/Reflex Nonreactive (Nonreactive)
== END 2024-11-05 05:15 | disposition home or self-care (01) ==
PROVIDERS: PCP Advanced Practice Midwife; Visit Provider Advanced Practice Midwife
DX: Z34.91 Encounter for supervision of normal pregnancy, unspecified, first trimester (principal)
CPT/HCPCS: 36415; 86787; 86803; 86850; 86900; 86901; 87340; 87389; 83036; 85025; 86762; 86780

== ENCOUNTER 2024-11-05 15:09 | Outpatient (REF) | payer BC, SELFPAY ==
[2024-11-15 05:51] LABS: Chlamydia Result Negative (Negative)
[2024-11-15 05:52] LABS: GC Result Negative (Negative)
== END 2024-11-05 15:10 | disposition home or self-care (01) ==
LOC: LBN 15:09
PROVIDERS: PCP Advanced Practice Midwife; Visit Provider Advanced Practice Midwife
DX: Z34.91 Encounter for supervision of normal pregnancy, unspecified, first trimester (principal)
CPT/HCPCS: 87491; 87591; 87086